=== PATIENT | female | born 1960 | race Two or more races ===

== ENCOUNTER → 2021-11-18 | Outpatient (BNVA) | payer MEDICARE, MEDICAID, SELFPAY | END | disposition home or self-care (01) | PROVIDERS: PCP Nurse Practitioner Primary Care; Visit Provider Urology ==

== ENCOUNTER 2024-09-15 14:33 | Emergency (ER) | payer MEDICARE, MEDICAID, SELFPAY ==
--- NOTE | 2024-09-15 14:44 | XR_ITS ---
Examination: PA lateral chest 2 views Technique: Upright PA lateral chest 2 views Exam date and time: September 07, 2024 1508 hrs. Indications: Left-sided chest pain beginning 3 days ago. Findings: Normal heart size No pneumonia or pulmonary edema The osseous structures are intact Impression: No pneumonia or pulmonary edema
--- NOTE | 2024-09-15 14:44 | EKG_ITS ---
[facility] Test Date: 2024-09-15 Pat Name: SREEKANTH BRUNER Department: Room: - Gender: Female [place] Driver: : 1960 Requested By: Rocky Richards (DIE MECHANIC) Order Number: [id number] Reading MD: Rocky Richards (DIE MECHANIC) Measurements Intervals [place] Rate: 107 P: 26 NV: 157 QRS: -38 QRSD: 113 T: 92 QT: 310 QTc: 414 Interpretive Statements SINUS TACHYCARDIA MARKED LEFT AXIS DEVIATION [QRS AXIS < -30] LOW QRS VOLTAGE IN PRECORDIAL LEADS [QRS DEFLECTION < 1.0 mV IN CHEST LEADS] LEFT VENTRICULAR HYPERTROPHY AND ST-T CHANGE [VOLTAGE CRITERIA PLUS ST/T ABNORMALITY] POSSIBLE ANTERIOR MYOCARDIAL INFARCTION , OF INDETERMINATE AGE [30 ms Q WAVE IN V3/V4, OR R < 0.2 mV IN V4] Compared to ECG 12/07/2018 10:37:28 Left-axis deviation now present Low QRS voltage now present Left ventricular hypertrophy now present ST (T wave) deviation now present Sinus rhythm no longer present T-wave abnormality no longer present Possible ischemia no longer present Myocardial infarct finding still present /store/S0/[id number]
[2024-09-15 14:51] VITALS: BP 139/70; PULSE 98; RESP 17; TEMP 36.6; O2SAT 98
--- NOTE | 2024-09-15 14:58 | EDNOTE_ITS ---
ED Chest Pain RME/HPI General Chief Complaint: Chest Pain Stated Complaint: LEFT SIDE CHEST PAIN FOR 3 DAYS Time Seen by Provider: 09/15/24 14:58 Arrival date/time: 09/15/24 14:33 RME / HPI RME / HPI narrative: 64-year-old female patient with significant history of hypertension diabetes mellitus, came in for evaluation regarding left-sided chest pain. Onset of symptoms for the last 3 days as on and off left-sided chest pain, described as pulsating, radiating to the back. Patient denies any cough denies any diaphoresis denies any shortness of breath. Patient also denies any nausea or vomiting. Denies any abdominal pain. No medication was taken prior to arrival. Currently patient is less intense as earlier today. Related Data Home Medications ?Medication ?Instructions ?Recorded ?Confirmed Aspirin (Aspir 81) 1 tab PO DAILY ##0 04/09/12 12/16/21 Insulin NPH/Regular 70-30 * ##0 04/09/12 12/16/21 (NOVOLIN 70-30 *) furosemide 40 mg tablet 40 mg PO QDAY 10/03/21 12/16/21 gabapentin 600 mg tablet 600 mg PO QDAY 10/03/21 12/16/21 hydrocodone 5 mg-acetaminophen 325 1 tab PO BID PRN 10/03/21 12/16/21 mg tablet isosorbide dinitrate 30 mg tablet 30 mg PO QID 10/03/21 12/16/21 losartan 100 mg tablet 100 mg PO QDAY 10/03/21 12/16/21 metformin 1,000 mg tablet 1,000 mg PO QDAY 10/03/21 12/16/21 mirabegron 50 mg tablet,extended 50 mg PO QDAY 10/03/21 12/16/21 release 24 hr (Myrbetriq) nortriptyline 10 mg capsule 10 mg PO QDAY 10/03/21 12/16/21 potassium chloride 8 mEq 8 meq PO QDAY 10/03/21 12/16/21 capsule,extended release pravastatin 40 mg tablet 40 mg PO QDAY 10/03/21 12/16/21 ropinirole 0.5 mg tablet 0.5 mg PO QDAY 10/03/21 12/16/21 trihexyphenidyl 2 mg tablet 2 mg PO QPC 10/03/21 12/16/21 Previous Rx's ?Medication ?Instructions ?Recorded diclofenac sodium 1 % topical gel 1 g topical .BID prn #100 grams 12/12/22 cyclobenzaprine 10 mg tablet 10 mg PO TID PRN muscle spasm #20 09/15/24 tabs naproxen 500 mg tablet (Naprosyn) 500 mg PO BID PRN pain #30 tabs 09/15/24 Allergies Allergy/AdvReac Type Severity Reaction Status Date / Time Penicillins Allergy Mild Rash Verified 09/15/24 14:36 Review of Systems Review of Systems Narrative Review of Systems: Review of system reviewed and within normal limits except mentioned in HPI ED Exam Narrative Physical exam: VITAL SIGNS: Reviewed. GENERAL APPEARANCE: Alert and interactive, follows commands, no acute distress, HEAD AND FACE: Non-traumatic. ENT: PERRL, pink conjunctivitis, eyelid no trauma, Mucous membrane moist. NECK: Supple, nontender, no nuchal rigidity. CHEST: Left chest tenderness, no crepitus, no paradoxical movement, no retractions. LUNGS: Clear, well ventilated, symmetric, no rales, no wheezing, no ronchi, no stridor, good breath sounds bilaterally. HEART: Regular rate, regular rhythm, no murmur, no gallops. ABDOMEN: Soft, positive bowel sounds, nondistended, no guarding, nontender, no rebound, no masses, RECTAL: Deferred. GENITAL: Deferred. NEUROLOGICAL: Gross motor function intact sensory function intact, Appropriate for age. MUSCULOSKELETAL: low back nontender, full range of motion. EXTREMITIES: Nontender, full range of motion. SKIN: Color pink, dry, no rash, no lacerations, no abrasions, no contusions. LYMPHATICS: Deferred. Course Quality Measures none Orders Category Date Time Status EKG (ED ONLY) *Do not use* NOW Care 09/15/24 14:44 Completed EKG (ED Only) Stat Exams 09/15/24 14:44 Draft XR chest 2V Stat Exams 09/15/24 14:44 Completed CBC Stat Lab 09/15/24 14:56 Completed Comprehensive Metabolic Panel Stat Lab 09/15/24 14:56 Completed Lipase Stat Lab 09/15/24 14:56 Completed Troponin I Stat Lab 09/15/24 14:56 Completed Vital Signs Vital signs: Vital Signs Temperature 97.8 F 09/15/24 14:51 Pulse Rate 98 09/15/24 14:51 Respiratory Rate 17 09/15/24 14:51 Blood Pressure 139/70 H 09/15/24 14:51 Pulse Oximetry (%) 98 09/15/24 14:51 Oxygen Delivery Method Room Air 09/15/24 14:51 Chest Pain MDM Narrative MDM Narrative:: 64-year-old female patient with significant history of hypertension diabetes mellitus, came in for evaluation regarding left-sided chest pain. Onset of sy mptoms for the last 3 days as on and off left-sided chest pain, described as pulsating, radiating to the back. Patient denies any cough denies any diaphoresis denies any shortness of breath. Patient also denies any nausea or vomiting. Denies any abdominal pain. No medication was taken prior to arrival. Currently patient is less intense as earlier today. Patient cardiac workup all came back unremarkable troponin is normal. Repeat troponin is not needed patient's been having on and off chest pain for 3 days now. The rest of the labs unremarkable. Patient will be sent home on naproxen and muscle relaxant. Patient was advised to closely follow-up with PCP and return to emergency room for worsening of chest pain. Patient agrees with the plan. Patient is not having any pain prior to discharge. Patient data External records reviewed:: None Clinical information provided by:: none Social determinants that could affect healthcare access:: none Patient has the following chronic illnesses:: Hypertension, DM How is presenting disease/condition affected by chronic disease/condition?: exacerbated by Evaluation data The following diagnostics were reviewed and interpreted by me:: lab results, radiology exam(s) and EKG tracing(s) Lab and/or radiology exams considered but not ordered:: None Interpretation Summary: Patient's workup all came back unremarkable except for slight leukocytosis 20,000. EKG showed sinus tachycardia, ventricular rate of 107 bpm, no ST segme nt ovation depression noted. I personally reviewed and interpreted the x-ray of this patient. There is no acute abnormalities found, no infiltrates no pneumothorax no hemothorax normal chest x-ray. Review of other structures was without significant abnormal findings also. I additionally reviewed the radiologist report and agree with the interpretation. Medications / Prescriptions Medications or Prescriptions considered but not ordered:: None Medication administrations:: None Consultations Consultation(s) initiated? (list below): No Diagnosis Chest Pain Differential Diagnosis: pneumothorax, chest pain and other (Pneumonia, ACS) Most likely diagnosis given after review of the tests above:: Chest pain Admission Indicated Admission indicated?: not indicated Admission Request Was there a request for admission?: No Disposition Plan Disposition Plan: Discharge Discharge Attestation Discharge Attestation: The patient was given an opportunity to ask questions and understood the discharge instructions. Discharge instructions specifically effects, indications for sooner follow up or return to the emergency department, and the expected course of current diagnosis. Patient condition: Stable Discharge Plan Plan Patient Disposition: HOME (Self Care) Disposition Comment: stable Prescriptions/Referrals Prescriptions/Med Rec: New cyclobenzaprine 10 mg tablet 10 mg PO TID PRN (Reason: muscle spasm) Qty: 20 0RF naproxen [Naprosyn] 500 mg tablet 500 mg PO BID PRN (Reason: pain) Qty: 30 0RF No Action pravastatin 40 mg tablet 40 mg PO QDAY furosemide 40 mg tablet 40 mg PO QDAY potassium chloride 8 mEq capsule, extended release 8 meq PO QDAY isosorbide dinitrate 30 mg tablet 30 mg PO QID Rx Instructions: allow nitrate-free interval of 12-14 hrs per 24-hr period trihexyphenidyl 2 mg tablet 2 mg PO QPC gabapentin 600 mg tablet 600 mg PO QDAY Rx Instructions: take 2 tabs po Q morning and at noon and 3 tab at bedtime losartan 100 mg tablet 100 mg PO QDAY metformin 1,000 mg tablet 1,000 mg PO QDAY ropinirole 0.5 mg tablet 0.5 mg PO QDAY nortriptyline 10 mg capsule 10 mg PO QDAY hydrocodone-acetaminophen 5-325 mg tablet 1 tab PO BID PRN Myrbetriq 50 mg tablet extended release 24 hr 50 mg PO QDAY Aspirin (Aspir 81) 81 MG TABLET.DR 1 tab PO DAILY Qty: 0 Insulin NPH/Regular 70-30 * (NOVOLIN 70-30 *) 100 UNIT/ML unit Qty: 0 diclofenac sodium 1 % gel 1 g topical .BID prn Qty: 100 0RF Rx Instructions: apply to single elbow, wrist or hand; for hand includes palm/fingers/back of hand Referrals: Evan Lovett [Primary Care Provider] - In 1 week Problem List Clinical Impression: Chest pain, muscular Patient/Caregiver Discharge Instructions Discharge Activity: activity as tolerated Education Materials: Understanding the Pain Response Additional Instructions: Thank you for the opportunity for serving you today. You are stable for discharged . You are advised to: Follow-up with your PCP in 1 to 2 days Return to ED for worsening of symptoms Increase oral fluids Take medication as prescribed Print Language: Palestinian Stand Alone Forms: Tigist Award Info., Patient Portal Info Letter PA/CAGE MANAGER Supervising Physician HARRY/ANGELICA Supervising Physician: MD Phylicia
[2024-09-15 15:11] LABS: Basophils # (Auto) 0.1 Thou/mm3 (0.0-0.2); Basophils % (Auto) 0 % (0-2.5); Eosinophils # (Auto) 0.2 Thou/mm3 (0.0-0.5); Eosinophils % (Auto) 1 % (0-10); Hematocrit 37.1 % (36.0-46.0); Hemoglobin 11.6 g/dL (12.0-16.0); Immature Granulocytes % (Auto) 0 % (0-0); Immature Granulocytes Auto 0.04 Thou/mm3 (0.00-0.00); Lymphocytes # (Auto) 4.2 Thou/mm3 (1.0-4.8); Lymphocytes % (Auto) 26 % (10-50); Mean Corpuscular HGB Conc 31.3 g/dl (31.0-37.0); Mean Corpuscular Hemoglobin 23.6 pg (25.0-35.0); Mean Corpuscular Volume 75 fL (80-100); Monocytes # (Auto) 0.9 Thou/mm3 (0.0-0.8); Monocytes % (Auto) 5 % (0-12); Neutrophils # (Auto) 10.6 Thou/mm3 (1.8-7.7); Neutrophils % (Auto) 67 % (37-80); Nucleated Red Blood Cell % 0 /100 WBC (0); Platelet Count 403 Thou/mm3 (140-440); RDW Standard Deviation 43.7 fL (36.4-46.3); Red Blood Count 4.92 Miln/mm3 (4.00-5.20); White Blood Count 15.9 Thou/mm3 (3.6-11.0)
[2024-09-15 15:48] LABS: Alanine Aminotransferase < 7 U/L (10-49); Albumin, Serum 4.5 gm/dL (3.4-4.8); Albumin/Globulin Ratio 1.3 (1.2-2.2); Alkaline Phosphatase 110 U/L (46-116); Anion Gap 7 (7-16); Aspartate Amino Transferase 10 U/L (0-34); BUN/Creatinine Ratio 17 Ratio (12-20); Bilirubin,Total 0.2 mg/dL (0.3-1.2); Blood Urea Nitrogen 17 mg/dL (9-23); Calcium 9.7 mg/dL (8.3-10.6); Calcium (Corrected) 9.7 mg/dL (8.5-10.1); Chloride 104 mMol/L (98-107); Globulin 3.4 gm/dL (2.3-3.5); Glucose 205 mg/dL (74-106); Lipase 41 U/L (12-53); Osmolality,Calculated 281 (275-295); Potassium 4.1 mMol/L (3.4-5.1); Sodium 137 mMol/L (136-145); Total Protein 7.9 gm/dL (5.7-8.2); eGFR > 60 See Note
[2024-09-15 16:01] LABS: Troponin I < 0.002 ng/mL (0.0-0.045)
== END 2024-09-15 16:54 | disposition home or self-care (01) ==
PROVIDERS: Nurse Practitioner Primary Care; Emergency Provider Emergency Medicine; PCP Family Medicine
DX: R07.9 Chest pain, unspecified (principal); R00.0 Tachycardia, unspecified; I10 Essential (primary) hypertension; D72.829 Elevated white blood cell count, unspecified
CPT/HCPCS: 36415; 71046; 80053; 83690; 84484; 85025; 93005; 99283

== ENCOUNTER 2024-09-30 11:53 | Emergency (ER) | payer MEDICARE, MEDICAID, SELFPAY ==
[2024-09-30 12:05] VITALS: BP 147/73; PULSE 100; RESP 19; TEMP 36.6; O2SAT 96; BMI 40.9
--- NOTE | 2024-09-30 12:12 | XR_ITS ---
Examination: CT brain head without contrast. 2-D sagittal coronal reconstructions Date and time of exam:September 30, 2024 1244 hours Comparison April 22, 2014 INDICATIONS: Onset generalized head pain beginning 3 days ago CTDI: vol (mGy):47.1 DLP: (mGycm):923 Technique: Multiple CT axial sections of the brain have been obtained, 5 mm slice thickness. Contrast has not been administered. 2-D sagittal, coronal reconstructions have been obtained Low dose protocols were performed. One or more of the following dose reduction techniques were used; automated exposure control, adjustment of the mA and/or KV according to patient size, use of iterative reconstruction technique. Findings: No significant ventricular enlargement. Intra-axial or extra-axial hemorrhage density is not seen. No mass effect or midline shift Basal cisterns are not remarkable. Fourth ventricle is midline. Cranial vault intact. Impression: Negative for acute hemorrhage, mass effect or midline shift Advise clinical correlation follow-up accordingly
--- NOTE | 2024-09-30 12:12 | PD.EDRME ---
Rapid Medical Screening Exam RME Arrival date/time: 09/30/24 11:53 Chief Complaint: Headache Time Seen by Provider: 09/30/24 11:55 Vital signs: Vital Signs Temperature 97.8 F 09/30/24 12:05 Pulse Rate 100 09/30/24 12:05 Respiratory Rate 19 09/30/24 12:05 Blood Pressure 147/73 H 09/30/24 12:05 Pulse Oximetry (%) 96 09/30/24 12:05 Oxygen Delivery Method Room Air 09/30/24 12:05 E Narrative: Right-sided headache/neck pain x 3 days, no reported injury.
[2024-09-30 12:39] LABS: Basophils # (Auto) 0.1 Thou/mm3 (0.0-0.2); Basophils % (Auto) 1 % (0-2.5); Eosinophils # (Auto) 0.3 Thou/mm3 (0.0-0.5); Eosinophils % (Auto) 2 % (0-10); Hematocrit 38.2 % (36.0-46.0); Hemoglobin 12.4 g/dL (12.0-16.0); Immature Granulocytes % (Auto) 1 % (0-0); Immature Granulocytes Auto 0.07 Thou/mm3 (0.00-0.00); Lymphocytes # (Auto) 4.6 Thou/mm3 (1.0-4.8); Lymphocytes % (Auto) 30 % (10-50); Mean Corpuscular HGB Conc 32.5 g/dl (31.0-37.0); Mean Corpuscular Hemoglobin 24.4 pg (25.0-35.0); Mean Corpuscular Volume 75 fL (80-100); Monocytes # (Auto) 0.7 Thou/mm3 (0.0-0.8); Monocytes % (Auto) 5 % (0-12); Neutrophils # (Auto) 9.4 Thou/mm3 (1.8-7.7); Neutrophils % (Auto) 62 % (37-80); Nucleated Red Blood Cell % 0 /100 WBC (0); Platelet Count 377 Thou/mm3 (140-440); RDW Standard Deviation 43.8 fL (36.4-46.3); Red Blood Count 5.09 Miln/mm3 (4.00-5.20); White Blood Count 15.1 Thou/mm3 (3.6-11.0)
[2024-09-30 13:15] LABS: Alanine Aminotransferase < 7 U/L (10-49); Albumin, Serum 4.5 gm/dL (3.4-4.8); Albumin/Globulin Ratio 1.3 (1.2-2.2); Alkaline Phosphatase 151 U/L (46-116); Anion Gap 6 (7-16); Aspartate Amino Transferase 10 U/L (0-34); BUN/Creatinine Ratio 23 Ratio (12-20); Bilirubin,Total < 0.2 mg/dL (0.3-1.2); Blood Urea Nitrogen 16 mg/dL (9-23); Calcium 9.6 mg/dL (8.3-10.6); Calcium (Corrected) 9.6 mg/dL (8.5-10.1); Carbon Dioxide 27.1 mMol/L (20.0-31.0); Chloride 105 mMol/L (98-107); Creatinine (Component) 0.7 mg/dL (0.6-1.3); Estimated Creatinine Clearance 91.5 mL/min (>60); Globulin 3.5 gm/dL (2.3-3.5); Glucose 212 mg/dL (74-106); Osmolality,Calculated 282 (275-295); Potassium 4.1 mMol/L (3.4-5.1); Sodium 138 mMol/L (136-145); eGFR > 60 See Note
--- NOTE | 2024-09-30 14:29 | PD.EDHA ---
ED Headache RME/HPI General Chief Complaint: Headache Stated Complaint: headache/neck pain x3 days Time Seen by Provider: 09/30/24 11:55 Arrival date/time: 09/30/24 11:53 RME / HPI RME / HPI Narrative: 64-year-old female patient came in for evaluation regarding posterior neck pain. Onset of symptoms for the last 3 days as sudden onset of posterolateral neck pain, more on the right side, described as dull ache, severity moderate. Patient denies any fall. Denies any fever. Denies any upper or lower extremity weakness. Denies any pain radiating to the arm or legs. Patient is ambulatory. Related Data Home Medications ?Medication ?Instructions ?Recorded ?Confirmed Aspirin (Aspir 81) 1 tab PO DAILY ##0 04/09/12 12/16/21 Insulin NPH/Regular 70-30 * ##0 04/09/12 12/16/21 (NOVOLIN 70-30 *) furosemide 40 mg tablet 40 mg PO QDAY 10/03/21 12/16/21 gabapentin 600 mg tablet 600 mg PO QDAY 10/03/21 12/16/21 hydrocodone 5 mg-acetaminophen 325 1 tab PO BID PRN 10/03/21 12/16/21 mg tablet isosorbide dinitrate 30 mg tablet 30 mg PO QID 10/03/21 12/16/21 losartan 100 mg tablet 100 mg PO QDAY 10/03/21 12/16/21 metformin 1,000 mg tablet 1,000 mg PO QDAY 10/03/21 12/16/21 mirabegron 50 mg tablet,extended 50 mg PO QDAY 10/03/21 12/16/21 release 24 hr (Myrbetriq) nortriptyline 10 mg capsule 10 mg PO QDAY 10/03/21 12/16/21 potassium chloride 8 mEq 8 meq PO QDAY 10/03/21 12/16/21 capsule,extended release pravastatin 40 mg tablet 40 mg PO QDAY 10/03/21 12/16/21 ropinirole 0.5 mg tablet 0.5 mg PO QDAY 10/03/21 12/16/21 trihexyphenidyl 2 mg tablet 2 mg PO QPC 10/03/21 12/16/21 Previous Rx's ?Medication ?Instructions ?Recorded diclofenac sodium 1 % topical gel 1 g topical .BID prn #100 grams 12/12/22 cyclobenzaprine 10 mg tablet 10 mg PO TID PRN muscle spasm #20 09/15/24 tabs naproxen 500 mg tablet (Naprosyn) 500 mg PO BID PRN pain #30 tabs 09/15/24 cyclobenzaprine 10 mg tablet 10 mg PO TID PRN muscle spasm #30 09/30/24 tabs ibuprofen 600 mg tablet 600 mg PO TID PRN pain #30 tabs 09/30/24 Allergies Allergy/AdvReac Type Severity Reaction Status Date / Time Penicillins Allergy Mild Rash Verified 09/30/24 11:54 Review of Systems Review of Systems Narrative Review of Systems: Review of system reviewed and within normal limits except mentioned in HPI ED Exam Narrative Physical exam: VITAL SIGNS: Reviewed. GENERAL APPEARANCE: Alert and interactive, follows commands, no acute distress, HEAD AND FACE: Non-traumatic. ENT: PERRL, pink conjunctivitis, eyelid no trauma, Mucous membrane moist. NECK: Supple, posterior neck tenderness more on the right posterolateral, no nuchal rigidity. CHEST: No tenderness, no crepitus, no paradoxical movement, no retractions. LUNGS: Clear, well ventilated, symmetric, no rales, no wheezing, no ronchi, no stridor, good breath sounds bilaterally. HEART: Regular rate, regular rhythm, no murmur, no gallops. ABDOMEN: Soft, positive bowel sounds, nondistended, no guarding, nontender, no rebound, no masses, RECTAL: Deferred. GENITAL: Deferred. NEUROLOGICAL: Gross motor function intact sensory function intact, Appropriate for age. MUSCULOSKELETAL: low back nontender, full range of motion. EXTREMITIES: Nontender, full range of motion. SKIN: Color pink, dry, no rash, no lacerations, no abrasions, no contusions. LYMPHATICS: Deferred. Course Quality Measures none Orders Category Date Time Status CT head/brain wo con Stat Exams 09/30/24 12:12 Completed CBC Stat Lab 09/30/24 12:20 Completed CMP [Comprehensive Metabolic Panel] Stat Lab 09/30/24 12:20 Completed Acetaminophen Tab [Tylenol ES Tab] Med 09/30/24 12:50 Discontinued 1,000 mg PO X1 ONE CYCLObenzaPRINE [Flexeril] Med 09/30/24 12:50 Discontinued 10 mg PO X1 ONE Vital Signs Vital signs: Vital Signs Temperature 97.8 F 09/30/24 12:05 Pulse Rate 100 09/30/24 12:05 Respiratory Rate 19 09/30/24 12:05 Blood Pressure 147/73 H 09/30/24 12:05 Pulse Oximetry (%) 96 09/30/24 12:05 Oxygen Delivery Method Room Air 09/30/24 12:05 Headache MDM Narrative MDM Narrative:: 64-year-old female patient came in for evaluation regarding posterior neck pain. Onset of symptoms for the last 3 days as sudden onset of posterolateral neck pain, more on the right side, described as dull ache, severity moderate. Patient denies any fall. Denies any fever. Denies any upper or lower extremity weakness. Denies any pain radiating to the arm or legs. Patient is ambulatory. CT scan of the head came back unremarkable. Laboratory workup also all came back normal except for slight leukocytosis. Patient received Tylenol and Flexeril with good relief of pain Patient data External records reviewed:: None Clinical information provided by:: patient Social determinants that could affect healthcare access:: none Patient has the following chronic illnesses:: Diabetes mellitus hypertension How is presenting disease/condition affected by chronic disease/condition?: exacerbated by Evaluation data The following diagnostics were reviewed and interpreted by me:: lab results and radiology exam(s) Lab and/or radiology exams considered but not ordered:: None Interpretation Summary: CT scan of the head came back unremarkable. Laboratory workup came back normal except for slight leukocytosis. Medications / Prescriptions Medications or Prescriptions considered but not ordered:: None Medication administrations:: Medication Administration History Discontinued Medications Acetaminophen (Acetaminophen 500 Mg Tablet) 1,000 mg PO X1 ONE Stop: 09/30/24 12:51 Cyclobenzaprine HCl (Cyclobenzaprine 5 Mg Tablet) 10 mg PO X1 ONE Stop: 09/30/24 12:51 Tylenol and Flexeril Consultations Consultation(s) initiated? (list below): No Diagnosis Differential diagnosis headache: migraine, headache and other (Neck pain) Most likely diagnosis given after review of the tests above:: Neck pain Admission Indicated Admission indicated?: not indicated Admission Request Was there a request for admission?: No Disposition Plan Disposition Plan: Discharge Discharge Attestation Discharge Attestation: The patient was given an opportunity to ask questions and understood the discharge instructions. Discharge instructions specifically effects, indications for sooner follow up or return to the emergency department, and the expected course of current diagnosis. Patient condition: Stable Discharge Plan Plan Patient Disposition: HOME (Self Care) Disposition Comment: stable Prescriptions/Referrals Prescriptions/Med Rec: New cyclobenzaprine 10 mg tablet 10 mg PO TID PRN (Reason: muscle spasm) Qty: 30 0RF ibuprofen 600 mg tablet 600 mg PO TID PRN (Reason: pain) Qty: 30 0RF No Action pravastatin 40 mg tablet 40 mg PO QDAY furosemide 40 mg tablet 40 mg PO QDAY potassium chloride 8 mEq capsule, extended release 8 meq PO QDAY isosorbide dinitrate 30 mg tablet 30 mg PO QID Rx Instructions: allow nitrate-free interval of 12-14 hrs per 24-hr period trihexyphenidyl 2 mg tablet 2 mg PO QPC gabapentin 600 mg tablet 600 mg PO QDAY Rx Instructions: take 2 tabs po Q morning and at noon and 3 tab at bedtime losartan 100 mg tablet 100 mg PO QDAY metformin 1,000 mg tablet 1,000 mg PO QDAY ropinirole 0.5 mg tablet 0.5 mg PO QDAY nortriptyline 10 mg capsule 10 mg PO QDAY hydrocodone-acetaminophen 5-325 mg tablet 1 tab PO BID PRN Myrbetriq 50 mg tablet extended release 24 hr 50 mg PO QDAY Aspirin (Aspir 81) 81 MG TABLET.DR 1 tab PO DAILY Qty: 0 Insulin NPH/Regular 70-30 * (NOVOLIN 70-30 *) 100 UNIT/ML unit Qty: 0 diclofenac sodium 1 % gel 1 g topical .BID prn Qty: 100 0RF Rx Instructions: apply to single elbow, wrist or hand; for hand includes palm/fingers/back of hand cyclobenzaprine 10 mg tablet 10 mg PO TID PRN (Reason: muscle spasm) Qty: 20 0RF naproxen [Naprosyn] 500 mg tablet 500 mg PO BID PRN (Reason: pain) Qty: 30 0RF Referrals: Evan Lovett [Primary Care Provider] - In 1 week Problem List Clinical Impression: Posterior neck pain Patient/Caregiver Discharge Instructions Discharge Activity: activity as tolerated Education Materials: Neck Exercises: Active Neck Rotation Additional Instructions: Thank you for the opportunity for serving you today. You are stable for discharged . You are advised to: Follow-up with your PCP in 1 to 2 days Return to ED for worsening of symptoms Increase oral fluids Take medication as prescribed Print Language: Northern Irish Stand Alone Forms: Tigist Award Info., Patient Portal Info Letter PA/CHARTER BUS DRIVER Supervising Physician PA/CHARTER BUS DRIVER Supervising Physician: MD Bren
[2024-09-30] MEDS: CYCLObenzaPRINE 5 MG TABLET 10 MG PO (14:56)
[2024-09-30] MEDS: ACETAMINOPHEN 500 MG TABLET 1000 MG PO (14:56)
== END 2024-09-30 15:02 | disposition home or self-care (01) ==
PROVIDERS: Physician Assistant; Emergency Provider Emergency Medicine; PCP Family Medicine
DX: R51.9 Headache, unspecified (principal); M54.2 Cervicalgia
CPT/HCPCS: 36415; 70450; 80053; 85025; 99284; A9270

== ENCOUNTER → 2025-01-23 | Outpatient (CLI) | payer MEDICARE, MEDICAID, SELFPAY ==
--- NOTE | 2025-01-23 | XR_ITS ---
Examination: Shoulder,left, 3 views Technique: Shoulder AP internal rotation, AP external rotation, Y view shoulder, 3 views Exam date and time :January 23, 2025: 35 hours INDICATIONS: Left shoulder pain beginning 8 months ago. FINDINGS: Moderate to advanced narrowing glenohumeral joint Moderate calcific tendinitis No fracture IMPRESSION: Moderate to advanced narrowing glenohumeral joint Moderate calcific tendinitis
== END | disposition home or self-care (01) ==
PROVIDERS: PCP Family Medicine; Referring Provider Family Medicine; Visit Provider Family Medicine
DX: M75.32 Calcific tendinitis of left shoulder (principal); M25.812 Other specified joint disorders, left shoulder
CPT/HCPCS: 73030

== ENCOUNTER → 2025-02-28 | Outpatient (CLI) | payer MEDICARE, MEDICAID, SELFPAY ==
--- NOTE | 2025-02-28 | XR_ITS ---
EXAMINATION: Ankle, right 3 views . Technique: Ankle AP, oblique, lateral 3 views Date and time of exam: February 28, 2025 1146 hours INDICATIONS: Patient fell 4 days ago with injury to the ankle, ankle pain. FINDINGS: Severe osteopenia Lateral malleolar soft tissue swelling No acute fracture IMPRESSION: No acute fracture
== END | disposition home or self-care (01) ==
PROVIDERS: PCP Family Medicine; Referring Provider Family Medicine; Visit Provider Family Medicine
DX: S99.911A Unspecified injury of right ankle, initial encounter (principal); W19.XXXA Unspecified fall, initial encounter
CPT/HCPCS: 73610

== ENCOUNTER → 2025-03-01 | Outpatient (CLI) | payer MEDICARE, MEDICAID, SELFPAY ==
[2025-03-01 10:20] LABS: Basophils # (Auto) 0.1 Thou/mm3 (0.0-0.2); Basophils % (Auto) 1 % (0-2.5); Eosinophils # (Auto) 0.2 Thou/mm3 (0.0-0.5); Eosinophils % (Auto) 2 % (0-10); Hematocrit 37.7 % (36.0-46.0); Hemoglobin 12.1 g/dL (12.0-16.0); Immature Granulocytes % (Auto) 0 % (0-0); Immature Granulocytes Auto 0.04 Thou/mm3 (0.00-0.00); Lymphocytes # (Auto) 4.4 Thou/mm3 (1.0-4.8); Lymphocytes % (Auto) 32 % (10-50); Mean Corpuscular HGB Conc 32.1 g/dl (31.0-37.0); Mean Corpuscular Hemoglobin 25.2 pg (25.0-35.0); Mean Corpuscular Volume 78 fL (80-100); Monocytes # (Auto) 0.7 Thou/mm3 (0.0-0.8); Monocytes % (Auto) 5 % (0-12); Neutrophils # (Auto) 8.2 Thou/mm3 (1.8-7.7); Neutrophils % (Auto) 61 % (37-80); Nucleated Red Blood Cell % 0 /100 WBC (0); Platelet Count 413 Thou/mm3 (140-440); RDW Standard Deviation 45.5 fL (36.4-46.3); Red Blood Count 4.81 Miln/mm3 (4.00-5.20); White Blood Count 13.5 Thou/mm3 (3.6-11.0)
[2025-03-01 10:30] LABS: Glucose Estimated Average 226 mg/dL (80-131); Hemoglobin A1C 9.5 % Hgb (4.8-6.0)
[2025-03-01 10:40] LABS: Parathyroid Hormone Intact 44.8 pg/ml (18.5-88.0)
[2025-03-01 10:44] LABS: Alanine Aminotransferase 12 U/L (10-49); Albumin/Globulin Ratio 1.3 (1.2-2.2); Alkaline Phosphatase 123 U/L (46-116); Anion Gap 8 (7-16); Aspartate Amino Transferase 11 U/L (0-34); BUN/Creatinine Ratio 30 Ratio (12-20); Bilirubin,Total 0.2 mg/dL (0.3-1.2); Blood Urea Nitrogen 15 mg/dL (9-23); Calcium 8.6 mg/dL (8.3-10.6); Calcium (Corrected) 8.6 mg/dL (8.5-10.1); Carbon Dioxide 30.1 mMol/L (20.0-31.0); Cardiac Risk Estimate 2.6 RATIO (3.7-5.6); Chloride 105 mMol/L (98-107); Cholesterol 96 mg/dL (132-200); Creatinine (Component) 0.5 mg/dL (0.6-1.3); Globulin 3.1 gm/dL (2.3-3.5); Glucose 86 mg/dL (74-106); HDL Cholesterol 37 mg/dL (40-60); LDL Cholesterol,Calculated 33 mg/dL (0-130); Osmolality,Calculated 284 (275-295); Phosphorous 2.8 mg/dL (2.4-5.1); Potassium 4.3 mMol/L (3.4-5.1); Sodium 143 mMol/L (136-145); Thyroid Stimulating Hormone 4.06 uIU/mL (0.55-4.78); Total Protein 7.1 gm/dL (5.7-8.2); Triglycerides 128 mg/dL (30-150); Uric Acid 3.5 mg/dL (3.1-7.8); eGFR > 60 See Note
[2025-03-01 10:46] LABS: Ferritin 12 ng/mL (7.3-270.7); Iron 39 mcg/dL (50-170); Total Iron Binding Capacity 347 mcg/dL (250-425)
[2025-03-01 14:34] LABS: Creatinine MALB Rnd Ur 22 mg/dL (30-125); Microalbumin Creat Ratio 73 mg/gCrea (<30); Microalbumin, Random Urine 16 mg/L (0-300)
== END | disposition home or self-care (01) ==
PROVIDERS: PCP Family Medicine; Referring Provider Internal Medicine Nephrology; Visit Provider Internal Medicine Nephrology
DX: E11.22 Type 2 diabetes mellitus with diabetic chronic kidney disease (principal); D63.1 Anemia in chronic kidney disease; E03.9 Hypothyroidism, unspecified; E21.3 Hyperparathyroidism, unspecified; E55.9 Vitamin D deficiency, unspecified; E78.5 Hyperlipidemia, unspecified; E83.39 Other disorders of phosphorus metabolism; M10.30 Gout due to renal impairment, unspecified site; N04.9 Nephrotic syndrome with unspecified morphologic changes; N18.9 Chronic kidney disease, unspecified
CPT/HCPCS: 36415; 80053; 80061; 82043; 82306; 82570; 82728; 83036; 83540; 83550; 83970; 84100; 84439; 84443; 84550; 85025

== ENCOUNTER → 2025-03-31 | Outpatient (CLI) | payer MEDICARE, MEDICAID, SELFPAY ==
[2025-03-31 11:31] LABS: Basophils # (Auto) 0.1 Thou/mm3 (0.0-0.2); Basophils % (Auto) 1 % (0-2.5); Eosinophils # (Auto) 0.3 Thou/mm3 (0.0-0.5); Eosinophils % (Auto) 2 % (0-10); Hematocrit 36.5 % (36.0-46.0); Hemoglobin 12.1 g/dL (12.0-16.0); Immature Granulocytes % (Auto) 0 % (0-0); Immature Granulocytes Auto 0.05 Thou/mm3 (0.00-0.00); Lymphocytes % (Auto) 29 % (10-50); Mean Corpuscular HGB Conc 33.2 g/dl (31.0-37.0); Mean Corpuscular Hemoglobin 25.3 pg (25.0-35.0); Mean Corpuscular Volume 76 fL (80-100); Monocytes # (Auto) 0.7 Thou/mm3 (0.0-0.8); Monocytes % (Auto) 5 % (0-12); Neutrophils # (Auto) 8.5 Thou/mm3 (1.8-7.7); Neutrophils % (Auto) 63 % (37-80); Nucleated Red Blood Cell % 0 /100 WBC (0); Platelet Count 404 Thou/mm3 (140-440); RDW Standard Deviation 43.3 fL (36.4-46.3); Red Blood Count 4.79 Miln/mm3 (4.00-5.20); White Blood Count 13.6 Thou/mm3 (3.6-11.0)
[2025-03-31 11:47] LABS: Glucose Estimated Average 217 mg/dL (80-131); Hemoglobin A1C 9.2 % Hgb (4.8-6.0)
[2025-03-31 11:51] LABS: Parathyroid Hormone Intact 54.6 pg/ml (18.5-88.0)
[2025-03-31 11:53] LABS: Alanine Aminotransferase 12 U/L (10-49); Albumin, Serum 4.1 gm/dL (3.4-4.8); Albumin/Globulin Ratio 1.4 (1.2-2.2); Alkaline Phosphatase 109 U/L (46-116); Anion Gap 9 (7-16); Aspartate Amino Transferase 14 U/L (0-34); BUN/Creatinine Ratio 18 Ratio (12-20); Bilirubin,Total 0.3 mg/dL (0.3-1.2); Blood Urea Nitrogen 11 mg/dL (9-23); Calcium 9.1 mg/dL (8.3-10.6); Calcium (Corrected) 9.1 mg/dL (8.5-10.1); Carbon Dioxide 28.6 mMol/L (20.0-31.0); Chloride 102 mMol/L (98-107); Creatinine (Component) 0.6 mg/dL (0.6-1.3); Glucose 123 mg/dL (74-106); Magnesium 1.9 mg/dL (1.6-2.6); Osmolality,Calculated 279 (275-295); Phosphorous 3.2 mg/dL (2.4-5.1); Potassium 4.1 mMol/L (3.4-5.1); Sodium 140 mMol/L (136-145); Total Protein 7.1 gm/dL (5.7-8.2); eGFR > 60 See Note
== END | disposition home or self-care (01) ==
LOC: COPL 10:06
PROVIDERS: PCP Family Medicine; Referring Provider Internal Medicine Nephrology; Visit Provider Internal Medicine Nephrology
DX: I12.9 Hypertensive chronic kidney disease with stage 1 through stage 4 chronic kidney disease, or unspecified chronic kidney disease (principal); E11.22 Type 2 diabetes mellitus with diabetic chronic kidney disease; N18.9 Chronic kidney disease, unspecified; E21.3 Hyperparathyroidism, unspecified
CPT/HCPCS: 36415; 80053; 82043; 82570; 83036; 83735; 83970; 84100; 85025

== ENCOUNTER → 2025-04-04 | Outpatient (CLI) | payer MEDICARE, MEDICAID, SELFPAY ==
[2025-04-04 15:01] LABS: Creatinine MALB Rnd Ur 30 mg/dL (30-125); Microalbumin Creat Ratio 140 mg/gCrea (<30); Microalbumin, Random Urine 42 mg/L (0-300)
== END | disposition home or self-care (01) ==
LOC: SLDO 13:27
PROVIDERS: Referring Provider Internal Medicine Nephrology; Visit Provider Internal Medicine Nephrology
DX: I12.9 Hypertensive chronic kidney disease with stage 1 through stage 4 chronic kidney disease, or unspecified chronic kidney disease (principal); N18.9 Chronic kidney disease, unspecified; D63.1 Anemia in chronic kidney disease; E21.3 Hyperparathyroidism, unspecified
CPT/HCPCS: 82043; 82570

== ENCOUNTER → 2025-05-09 | Outpatient (CLI) | payer MEDICARE, MEDICAID, SELFPAY ==
[2025-05-09 10:09] LABS: Basophils # (Auto) 0.1 Thou/mm3 (0.0-0.2); Basophils % (Auto) 1 % (0-2.5); Eosinophils # (Auto) 0.2 Thou/mm3 (0.0-0.5); Eosinophils % (Auto) 1 % (0-10); Hematocrit 38.5 % (36.0-46.0); Hemoglobin 12.5 g/dL (12.0-16.0); Immature Granulocytes Auto 0.06 Thou/mm3 (0.00-0.00); Lymphocytes # (Auto) 4.5 Thou/mm3 (1.0-4.8); Lymphocytes % (Auto) 28 % (10-50); Mean Corpuscular HGB Conc 32.5 g/dl (31.0-37.0); Mean Corpuscular Hemoglobin 24.8 pg (25.0-35.0); Mean Corpuscular Volume 76 fL (80-100); Monocytes # (Auto) 0.8 Thou/mm3 (0.0-0.8); Monocytes % (Auto) 5 % (0-12); Neutrophils # (Auto) 10.8 Thou/mm3 (1.8-7.7); Neutrophils % (Auto) 65 % (37-80); Nucleated Red Blood Cell # 0.00 Thou/mm3 (0.00-0.00); Nucleated Red Blood Cell % 0 /100 WBC (0); Platelet Count 415 Thou/mm3 (140-440); RDW Standard Deviation 41.8 fL (36.4-46.3); Red Blood Count 5.05 Miln/mm3 (4.00-5.20); White Blood Count 16.5 Thou/mm3 (3.6-11.0)
[2025-05-09 10:20] LABS: Glucose Estimated Average 266 mg/dL (80-131); Hemoglobin A1C 10.9 % Hgb (4.8-6.0)
[2025-05-09 10:22] LABS: Creatinine MALB Rnd Ur 61 mg/dL (30-125); Microalbumin Creat Ratio 56 mg/gCrea (<30); Microalbumin, Random Urine 34 mg/L (0-300)
[2025-05-09 10:32] LABS: Alanine Aminotransferase 11 U/L (10-49); Albumin, Serum 4.1 gm/dL (3.4-4.8); Albumin/Globulin Ratio 1.2 (1.2-2.2); Alkaline Phosphatase 120 U/L (46-116); Anion Gap 11 (7-16); Aspartate Amino Transferase 15 U/L (0-34); BUN/Creatinine Ratio 18 Ratio (12-20); Bilirubin,Total 0.3 mg/dL (0.3-1.2); Blood Urea Nitrogen 11 mg/dL (9-23); Calcium 9.0 mg/dL (8.3-10.6); Calcium (Corrected) 9.0 mg/dL (8.5-10.1); Carbon Dioxide 26.7 mMol/L (20.0-31.0); Cardiac Risk Estimate 3.1 RATIO (3.7-5.6); Chloride 103 mMol/L (98-107); Cholesterol 110 mg/dL (132-200); Creatinine (Component) 0.6 mg/dL (0.6-1.3); Globulin 3.4 gm/dL (2.3-3.5); Glucose 169 mg/dL (74-106); HDL Cholesterol 35 mg/dL (40-60); LDL Cholesterol,Calculated 41 mg/dL (0-130); Osmolality,Calculated 284 (275-295); Potassium 3.9 mMol/L (3.4-5.1); Sodium 141 mMol/L (136-145); Total Protein 7.5 gm/dL (5.7-8.2); Triglycerides 172 mg/dL (30-150); eGFR > 60 See Note
== END | disposition home or self-care (01) ==
LOC: COPL 08:59
PROVIDERS: PCP Family Medicine; Referring Provider Internal Medicine Nephrology; Visit Provider Internal Medicine Nephrology
DX: I12.9 Hypertensive chronic kidney disease with stage 1 through stage 4 chronic kidney disease, or unspecified chronic kidney disease (principal); E11.22 Type 2 diabetes mellitus with diabetic chronic kidney disease; N18.9 Chronic kidney disease, unspecified; D63.1 Anemia in chronic kidney disease; E78.5 Hyperlipidemia, unspecified
CPT/HCPCS: 36415; 80053; 80061; 82043; 82570; 83036; 85025

== ENCOUNTER 2025-05-14 15:37 | Emergency (ER) | payer MEDICARE, MEDICAID, SELFPAY ==
[2025-05-14 15:38] VITALS: BMI 39.8
[2025-05-14 16:20] VITALS: BP 170/80; PULSE 104; RESP 19; TEMP 36.6; O2SAT 96
--- NOTE | 2025-05-14 16:23 | XR_ITS ---
Indication: Lumbar spine 3 views TECHNIQUE: AP lateral coned lateral lower lumbar spine 3 views Date and time: May 14, 2025 1523 hours indications: Low back pain for days. FINDINGS: Adequate alignment lumbar vertebral bodies on the lateral view No lumbar fracture [id number] lumbar disc narrowing L1-L2, L2-L3, L5-S1 No spondylolisthesis Prominent lumbar spondylosis IMPRESSION: [id number] lumbar degenerative disc disease L1-L2, L2-L3, L5-S1 Prominent lumbar spondylosis
--- NOTE | 2025-05-14 16:23 | EKG_ITS ---
[facility] Test Date: 2025-05-14 Pat Name: SREEKANTH BRUNER Department: Room: - Gender: Female Senior It Assistant: : 1960 Requested By: Yusra Mark Order Number: [id number] Reading MD: Yusra Mark Measurements Intervals [place] Rate: 95 P: 15 [place]: 142 QRS: -46 QRSD: 111 T: 70 QT: 354 QTc: 447 Interpretive Statements SINUS RHYTHM LEFT ANTERIOR FASCICULAR BLOCK [QRS AXIS <= -45, QR IN I, RS IN II] LEFT VENTRICULAR HYPERTROPHY AND ST-T CHANGE [VOLTAGE CRITERIA PLUS ST/T ABNORMALITY] POSSIBLE ANTERIOR MYOCARDIAL INFARCTION , PROBABLY OLD [30 ms Q WAVE IN V3/V4, OR R < 0.2 mV IN V4] Compared to ECG 09/15/2024 15:09:11 Left anterior fascicular block now present Sinus tachycardia no longer present Left-axis deviation no longer present ST (T wave) deviation still present Myocardial infarct finding still present /store/S0/[id number]/[id number]
--- NOTE | 2025-05-14 16:23 | XR_ITS ---
Examination: CT brain head without contrast. 2-D sagittal coronal reconstructions Date and time of exam:May 14, 2025, 1626 hours, comparison September 30, 2024 INDICATIONS: Onset headache high blood pressure dizziness beginning 4 days ago with tremors today CTDI: vol (mGy):21.6 DLP: (mGycm):1045 Technique: Multiple CT axial sections of the brain have been obtained, 5 mm slice thickness. Contrast has not been administered. 2-D sagittal, coronal reconstructions have been obtained Low dose protocols were performed. One or more of the following dose reduction techniques were used; automated exposure control, adjustment of the mA and/or KV according to patient size, use of iterative reconstruction technique. Findings: No significant ventricular enlargement. Intra-axial or extra-axial hemorrhage density is not seen. No mass effect or midline shift Basal cisterns are not remarkable. Fourth ventricle is midline. Cranial vault intact. Impression: Patient motion degrades scan image quality No hemorrhage mass effect or midline shift is noted
--- NOTE | 2025-05-14 16:24 | PD.EDRME ---
Rapid Medical Screening Exam E Arrival date/time: 05/14/25 15:37 This is a case of 64-year-old female with history of Parkinson and diabetes came in in the emergency room due to multiple concern patient initially came with left upper arm and left leg numbness for 3 days shaded with tingling sensation patient also noted to have on and off chest pain but no shortness of breath no palpitation patient also noted to have lower back pain but no injury no trauma persistence of the symptoms this patient decided to start consult here in the emergency room Chief Complaint: General Adult/Misc Complain
[2025-05-14 17:00] LABS: Basophils # (Auto) 0.1 Thou/mm3 (0.0-0.2); Basophils % (Auto) 1 % (0-2.5); Eosinophils # (Auto) 0.2 Thou/mm3 (0.0-0.5); Eosinophils % (Auto) 1 % (0-10); Hematocrit 38.7 % (36.0-46.0); Hemoglobin 12.1 g/dL (12.0-16.0); Immature Granulocytes Auto 0.07 Thou/mm3 (0.00-0.00); Lymphocytes # (Auto) 5.6 Thou/mm3 (1.0-4.8); Lymphocytes % (Auto) 34 % (10-50); Mean Corpuscular HGB Conc 31.3 g/dl (31.0-37.0); Mean Corpuscular Hemoglobin 24.5 pg (25.0-35.0); Mean Corpuscular Volume 78 fL (80-100); Monocytes # (Auto) 0.8 Thou/mm3 (0.0-0.8); Monocytes % (Auto) 5 % (0-12); Neutrophils # (Auto) 9.8 Thou/mm3 (1.8-7.7); Neutrophils % (Auto) 59 % (37-80); Nucleated Red Blood Cell # 0.00 Thou/mm3 (0.00-0.00); Nucleated Red Blood Cell % 0 /100 WBC (0); Platelet Count 435 Thou/mm3 (140-440); RDW Standard Deviation 43.0 fL (36.4-46.3); Red Blood Count 4.94 Miln/mm3 (4.00-5.20); White Blood Count 16.6 Thou/mm3 (3.6-11.0)
[2025-05-14 17:29] LABS: D-Dimer < 250 ng/mL (<600)
--- NOTE | 2025-05-14 17:33 | PC.NURSE ---
PT CALLED BACK TO TAKE TO RM. NO RESPONSE X1 @[id number]
[2025-05-14 17:50] LABS: Alanine Aminotransferase 7 U/L (10-49); Albumin, Serum 4.1 gm/dL (3.4-4.8); Albumin/Globulin Ratio 1.2 (1.2-2.2); Alkaline Phosphatase 137 U/L (46-116); Anion Gap 9 (7-16); Aspartate Amino Transferase 11 U/L (0-34); BUN/Creatinine Ratio 10 Ratio (12-20); Bilirubin,Total 0.2 mg/dL (0.3-1.2); Blood Urea Nitrogen 9 mg/dL (9-23); Calcium 9.3 mg/dL (8.3-10.6); Calcium (Corrected) 9.3 mg/dL (8.5-10.1); Carbon Dioxide 25.4 mMol/L (20.0-31.0); Chloride 104 mMol/L (98-107); Creatinine (Component) 0.9 mg/dL (0.6-1.3); Estimated Creatinine Clearance 70.1 mL/min (>60); Globulin 3.5 gm/dL (2.3-3.5); Glucose 375 mg/dL (74-106); Osmolality,Calculated 289 (275-295); Potassium 3.5 mMol/L (3.4-5.1); Sodium 138 mMol/L (136-145); Total Protein 7.6 gm/dL (5.7-8.2); Troponin I < 0.020 ng/mL (0.0-0.045); eGFR > 60 See Note
[2025-05-14 17:59] VITALS: BP 153/53; PULSE 80; RESP 19; TEMP 36.7; O2SAT 95
[2025-05-14 19:28] VITALS: BP 104/80; PULSE 96; RESP 20; TEMP 36.7; O2SAT 95
--- NOTE | 2025-05-14 19:44 | PD.EDEXREM ---
ED Extremity Problem RME/HPI General Chief complaint: General Adult/Misc Complain Stated complaint: CRAMPING BILAT LEGS X4 DAYS; HX PARKINSON'S Arrival date/time: 05/14/25 15:37 RME / HPI RME / HPI Narrative: 05/14/25 15:37 This is a case of 64-year-old female with history of Parkinson and diabetes came in in the emergency room due to multiple concern patient initially came with left upper arm and left leg numbness for 3 days shaded with tingling sensation patient also noted to have on and off chest pain but no shortness of breath no palpitation patient also noted to have lower back pain but no injury no trauma persistence of the symptoms this patient decided to start consult here in the emergency room DR. ZELAYA MAIN ED EVALUATION: 64 y/o female with Hx of Type II DM and Parkinson's Disease presents to ED c/o BUE and CHYNA cramping x 4 days. Patient states he cramping radiates from her hips down to her feet, and from her shoulders down to her hands. Denies any chest pain. No other concerns or complaints expressed at this time. Related Data Home Medications ?Medication ?Instructions ?Recorded ?Confirmed Aspirin (Aspir 81) 1 tab PO DAILY ##0 04/09/12 12/16/21 Insulin NPH/Regular 70-30 * ##0 04/09/12 12/16/21 (NOVOLIN 70-30 *) furosemide 40 mg tablet 40 mg PO QDAY 10/03/21 12/16/21 gabapentin 600 mg tablet 600 mg PO QDAY 10/03/21 12/16/21 hydrocodone 5 mg-acetaminophen 325 1 tab PO BID PRN 10/03/21 12/16/21 mg tablet isosorbide dinitrate 30 mg tablet 30 mg PO QID 10/03/21 12/16/21 losartan 100 mg tablet 100 mg PO QDAY 10/03/21 12/16/21 metformin 1,000 mg tablet 1,000 mg PO QDAY 10/03/21 12/16/21 mirabegron 50 mg tablet,extended 50 mg PO QDAY 10/03/21 12/16/21 release 24 hr (Myrbetriq) nortriptyline 10 mg capsule 10 mg PO QDAY 10/03/21 12/16/21 potassium chloride 8 mEq 8 meq PO QDAY 10/03/21 12/16/21 capsule,extended release pravastatin 40 mg tablet 40 mg PO QDAY 10/03/21 12/16/21 ropinirole 0.5 mg tablet 0.5 mg PO QDAY 10/03/21 12/16/21 trihexyphenidyl 2 mg tablet 2 mg PO QPC 10/03/21 12/16/21 Previous Rx's ?Medication ?Instructions ?Recorded diclofenac sodium 1 % topical gel 1 g topical .BID prn #100 grams 12/12/22 cyclobenzaprine 10 mg tablet 10 mg PO TID PRN muscle spasm #20 09/15/24 tabs naproxen 500 mg tablet (Naprosyn) 500 mg PO BID PRN pain #30 tabs 09/15/24 cyclobenzaprine 10 mg tablet 10 mg PO TID PRN muscle spasm #30 09/30/24 tabs ibuprofen 600 mg tablet 600 mg PO TID PRN pain #30 tabs 09/30/24 naproxen 500 mg tablet (Naprosyn) 500 mg PO BID PRN pain #30 tabs 05/14/25 Allergies Allergy/AdvReac Type Severity Reaction Status Date / Time Penicillins Allergy Mild Rash Verified 05/14/25 15:41 Review of Systems Review of Systems Systems Reviewed: All systems reviewed, normal except as documented Past Medical History Past Medical History NEUROLOGIC: Positive Parkinson's Disease ENDOCRINE: Positive Diabetes Mellitus Type 2 ED Exam Narrative Physical exam: Generally patient is alert in no obvious distress with parkinsonian tremor heart is regular rate and rhythm lungs station equal bilaterally abdomen soft bowel sounds present's and nontender musculoskeletal exam showed the patient to have right sided paravertebral lumbar muscular tenderness. Extremities show no asymmetrical swelling. Neurologic exam shows parkinsonian tremor Course Quality Measures none Orders Category Date Time Status EKG (ED ONLY) *Do not use* NOW Care 05/14/25 16:[address] head/brain wo con Stat Exams 05/14/25 16:23 Completed EKG (ED Only) Stat Exams 05/14/25 16:23 Draft XR lumbar spine 2-3V Stat Exams 05/14/25 16:23 Completed CBC Stat Lab 05/14/25 16:46 Completed CMP [Comprehensive Metabolic Panel] Stat Lab 05/14/25 16:46 Completed D-Dimer Stat Lab 05/14/25 16:46 Completed Troponin I Stat Lab 05/14/25 16:46 Completed Vital Signs Vital signs: Vital Signs Temperature 97.9 F 05/14/25 16:20 Pulse Rate 104 H 05/14/25 16:20 Respiratory Rate 19 05/14/25 16:20 Blood Pressure 170/80 H 05/14/25 16:20 Pulse Oximetry (%) 96 05/14/25 16:20 Oxygen Delivery Method Room Air 05/14/25 16:20 Extremity Problem MDM Narrative MDM Narrative:: Scribe Attestation: I, Theresa Grewal, am scribing for and in the presence of Dr. Zelaya. Provider Notation: Although this document has been carefully reviewed, there may still be some phonetic and other typographical errors.? These errors are purely grammatical due to imperfections in the software program and should not be construed in any way to? compromise the substance of the patient's medical care during this visit. I interpreted all labs. Head CT was negative. Lumbosacral spine x-ray showed evidence for degenerative disease. This most likely is causing the pain and numbness down bilateral legs. Patient will be started on Naprosyn to be taken as prescribed. EKG obtained at 4:27 PM shows normal sinus rhythm at a rate of 95 without ischemic change or ectopy. Troponin was not elevated. Patient data External records reviewed:: [facility] previous records (Reviewed records from 09/30/24. Patient was seen for Posterior neck pain.) Clinical information provided by:: patient and family (Daughter) Social determinants that could affect healthcare access:: none Patient has the following chronic illnesses:: Type II DM, Parkinson's Disease How is presenting disease/condition affected by chronic disease/condition?: exacerbated by Evaluation data The following diagnostics were reviewed and interpreted by me:: lab results, radiology exam(s) and EKG tracing(s) Lab and/or radiology exams considered but not ordered:: None Interpretation Summary: RADIOLOGY L-Spine X-Ray: FINDINGS: Adequate alignment lumbar vertebral bodies on the lateral view No lumbar fracture [id number] lumbar disc narrowing L1-L2, L2-L3, L5-S1 No spondylolisthesis Prominent lumbar spondylosis IMPRESSION: [id number] lumbar degenerative disc disease L1-L2, L2-L3, L5-S1 Prominent lumbar spondylosis Head/Brain CT: Findings: No significant ventricular enlargement. Intra-axial or extra-axial hemorrhage density is not seen. No mass effect or midline shift Basal cisterns are not remarkable. Fourth ventricle is midline. Cranial vault intact. Impression: Patient motion degrades scan image quality No hemorrhage mass effect or midline shift is noted Medications / Prescriptions Medications or Prescriptions considered but not ordered:: None Medication administrations:: See above if any Consultations Consultation(s) initiated? (list below): No Diagnosis Extremity Problem Differential Diagnosis: gout, lower extremity edema, deep vein thrombosis of lower extremity and other (Arthiritis, Osteoporosis, Discitis, Sciatica) Most likely diagnosis given after review of the tests above:: none Admission Indicated Admission indicated?: not indicated Explain why admission is indicated or not indicated:: Patient does no meet admission criteria. Admission Request Was there a request for admission?: No Disposition Plan Disposition Plan: Discharge Discharge Attestation Discharge Attestation: The patient and all family members were given an opportunity to ask questions and understood the discharge instructions. Discharge instructions specifically effects, indications for sooner follow up or return to the emergency department, and the expected course of current diagnosis. Patient condition: Stable Discharge Plan Plan Patient Disposition: HOME (Self Care) Prescriptions/Referrals Prescriptions/Med Rec: New naproxen [Naprosyn] 500 mg tablet 500 mg PO BID PRN (Reason: pain) Qty: 30 0RF No Action pravastatin 40 mg tablet 40 mg PO QDAY furosemide 40 mg tablet 40 mg PO QDAY potassium chloride 8 mEq capsule, extended release 8 meq PO QDAY isosorbide dinitrate 30 mg tablet 30 mg PO QID Rx Instructions: allow nitrate-free interval of 12-14 hrs per 24-hr period trihexyphenidyl 2 mg tablet 2 mg PO QPC gabapentin 600 mg tablet 600 mg PO QDAY Rx Instructions: take 2 tabs po Q morning and at noon and 3 tab at bedtime losartan 100 mg tablet 100 mg PO QDAY metformin 1,000 mg tablet 1,000 mg PO QDAY ropinirole 0.5 mg tablet 0.5 mg PO QDAY nortriptyline 10 mg capsule 10 mg PO QDAY hydrocodone-acetaminophen 5-325 mg tablet 1 tab PO BID PRN Myrbetriq 50 mg tablet extended release 24 hr 50 mg PO QDAY Aspirin (Aspir 81) 81 MG TABLET.DR 1 tab PO DAILY Qty: 0 Insulin NPH/Regular 70-30 * (NOVOLIN 70-30 *) 100 UNIT/ML unit Qty: 0 diclofenac sodium 1 % gel 1 g topical .BID prn Qty: 100 0RF Rx Instructions: apply to single elbow, wrist or hand; for hand includes palm/fingers/back of hand cyclobenzaprine 10 mg tablet 10 mg PO TID PRN (Reason: muscle spasm) Qty: 20 0RF naproxen [Naprosyn] 500 mg tablet 500 mg PO BID PRN (Reason: pain) Qty: 30 0RF cyclobenzaprine 10 mg tablet 10 mg PO TID PRN (Reason: muscle spasm) Qty: 30 0RF ibuprofen 600 mg tablet 600 mg PO TID PRN (Reason: pain) Qty: 30 0RF Referrals: Evan Lovett [Primary Care Provider] - In 1 week Problem List 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
== END 2025-05-14 20:02 | disposition home or self-care (01) ==
PROVIDERS: Nurse Practitioner Family; Emergency Provider Emergency Medicine; PCP Family Medicine
DX: M47.816 Spondylosis without myelopathy or radiculopathy, lumbar region (principal); M51.360 Other intervertebral disc degeneration, lumbar region with discogenic back pain only; M51.370 Other intervertebral disc degeneration, lumbosacral region with discogenic back pain only; R51.9 Headache, unspecified; R42 Dizziness and giddiness; I44.4 Left anterior fascicular block
CPT/HCPCS: 36415; 70450; 72100; 80053; 84484; 85025; 85379; 93005; 99283

== ENCOUNTER → 2025-06-21 | Outpatient (CLI) | payer MEDICARE, MEDICAID, SELFPAY ==
[2025-06-21 10:25] LABS: Basophils # (Auto) 0.1 Thou/mm3 (0.0-0.2); Basophils % (Auto) 1 % (0-2.5); Eosinophils # (Auto) 0.2 Thou/mm3 (0.0-0.5); Eosinophils % (Auto) 2 % (0-10); Hematocrit 38.8 % (36.0-46.0); Hemoglobin 12.0 g/dL (12.0-16.0); Immature Granulocytes Auto 0.05 Thou/mm3 (0.00-0.00); Lymphocytes # (Auto) 4.5 Thou/mm3 (1.0-4.8); Lymphocytes % (Auto) 31 % (10-50); Mean Corpuscular HGB Conc 30.9 g/dl (31.0-37.0); Mean Corpuscular Hemoglobin 23.7 pg (25.0-35.0); Mean Corpuscular Volume 77 fL (80-100); Monocytes # (Auto) 0.8 Thou/mm3 (0.0-0.8); Monocytes % (Auto) 5 % (0-12); Neutrophils # (Auto) 9.1 Thou/mm3 (1.8-7.7); Neutrophils % (Auto) 62 % (37-80); Nucleated Red Blood Cell # 0.00 Thou/mm3 (0.00-0.00); Nucleated Red Blood Cell % 0 /100 WBC (0); Platelet Count 431 Thou/mm3 (140-440); RDW Standard Deviation 40.5 fL (36.4-46.3); Red Blood Count 5.06 Miln/mm3 (4.00-5.20); White Blood Count 14.8 Thou/mm3 (3.6-11.0)
[2025-06-21 10:42] LABS: Glucose Estimated Average 246 mg/dL (80-131); Hemoglobin A1C 10.2 % Hgb (4.8-6.0)
[2025-06-21 11:12] LABS: Alanine Aminotransferase 8 U/L (10-49); Albumin, Serum 4.1 gm/dL (3.4-4.8); Albumin/Globulin Ratio 1.4 (1.2-2.2); Alkaline Phosphatase 126 U/L (46-116); Anion Gap 11 (7-16); Aspartate Amino Transferase 10 U/L (0-34); BUN/Creatinine Ratio 20 Ratio (12-20); Bilirubin,Total 0.3 mg/dL (0.3-1.2); Blood Urea Nitrogen 12 mg/dL (9-23); Calcium 9.8 mg/dL (8.3-10.6); Calcium (Corrected) 9.8 mg/dL (8.5-10.1); Carbon Dioxide 27.7 mMol/L (20.0-31.0); Cardiac Risk Estimate 2.8 RATIO (3.7-5.6); Chloride 102 mMol/L (98-107); Cholesterol 102 mg/dL (132-200); Creatinine (Component) 0.6 mg/dL (0.6-1.3); Globulin 3.0 gm/dL (2.3-3.5); Glucose 173 mg/dL (74-106); HDL Cholesterol 36 mg/dL (40-60); LDL Cholesterol,Calculated 34 mg/dL (0-130); Osmolality,Calculated 284 (275-295); Potassium 4.1 mMol/L (3.4-5.1); Sodium 141 mMol/L (136-145); Total Protein 7.1 gm/dL (5.7-8.2); Triglycerides 159 mg/dL (30-150); eGFR > 60 See Note
[2025-06-21 11:35] LABS: Creatinine MALB Rnd Ur 70 mg/dL (30-125); Microalbumin Creat Ratio 41 mg/gCrea (<30); Microalbumin, Random Urine 29 mg/L (0-300)
== END | disposition home or self-care (01) ==
PROVIDERS: PCP Family Medicine; Referring Provider Internal Medicine Nephrology; Visit Provider Internal Medicine Nephrology
DX: I12.9 Hypertensive chronic kidney disease with stage 1 through stage 4 chronic kidney disease, or unspecified chronic kidney disease (principal); E11.22 Type 2 diabetes mellitus with diabetic chronic kidney disease; E78.5 Hyperlipidemia, unspecified; N18.9 Chronic kidney disease, unspecified; D63.1 Anemia in chronic kidney disease
CPT/HCPCS: 36415; 80053; 80061; 82043; 82570; 83036; 85025

== ENCOUNTER → 2025-07-25 | Outpatient (CLI) | payer MEDICARE, MEDICAID, SELFPAY ==
[2025-07-25 11:55] LABS: Basophils # (Auto) 0.1 Thou/mm3 (0.0-0.2); Basophils % (Auto) 1 % (0-2.5); Eosinophils # (Auto) 0.2 Thou/mm3 (0.0-0.5); Eosinophils % (Auto) 1 % (0-10); Hematocrit 40.3 % (36.0-46.0); Hemoglobin 12.5 g/dL (12.0-16.0); Immature Granulocytes Auto 0.04 Thou/mm3 (0.00-0.00); Lymphocytes # (Auto) 4.5 Thou/mm3 (1.0-4.8); Lymphocytes % (Auto) 32 % (10-50); Mean Corpuscular HGB Conc 31.0 g/dl (31.0-37.0); Mean Corpuscular Hemoglobin 23.2 pg (25.0-35.0); Mean Corpuscular Volume 75 fL (80-100); Monocytes # (Auto) 0.7 Thou/mm3 (0.0-0.8); Monocytes % (Auto) 5 % (0-12); Neutrophils # (Auto) 8.8 Thou/mm3 (1.8-7.7); Neutrophils % (Auto) 61 % (37-80); Nucleated Red Blood Cell # 0.00 Thou/mm3 (0.00-0.00); Nucleated Red Blood Cell % 0 /100 WBC (0); Platelet Count 379 Thou/mm3 (140-440); RDW Standard Deviation 41.9 fL (36.4-46.3); Red Blood Count 5.39 Miln/mm3 (4.00-5.20); White Blood Count 14.3 Thou/mm3 (3.6-11.0)
[2025-07-25 12:07] LABS: Alanine Aminotransferase < 7 U/L (10-49); Albumin, Serum 4.5 gm/dL (3.4-4.8); Albumin/Globulin Ratio 1.3 (1.2-2.2); Alkaline Phosphatase 118 U/L (46-116); Anion Gap 10 (7-16); Aspartate Amino Transferase 17 U/L (0-34); BUN/Creatinine Ratio 12 Ratio (12-20); Bilirubin,Total 0.3 mg/dL (0.3-1.2); Blood Urea Nitrogen 7 mg/dL (9-23); Calcium 9.8 mg/dL (8.3-10.6); Calcium (Corrected) 9.8 mg/dL (8.5-10.1); Carbon Dioxide 27.1 mMol/L (20.0-31.0); Chloride 102 mMol/L (98-107); Creatinine (Component) 0.6 mg/dL (0.6-1.3); Globulin 3.6 gm/dL (2.3-3.5); Glucose 119 mg/dL (74-106); Osmolality,Calculated 276 (275-295); Potassium 4.0 mMol/L (3.4-5.1); Sodium 139 mMol/L (136-145); Total Protein 8.1 gm/dL (5.7-8.2); eGFR > 60 See Note
[2025-07-25 12:14] LABS: Glucose Estimated Average 240 mg/dL (80-131); Hemoglobin A1C 10.0 % Hgb (4.8-6.0)
== END | disposition home or self-care (01) ==
LOC: COPL 11:02
PROVIDERS: PCP Family Medicine; Referring Provider Internal Medicine Nephrology; Visit Provider Internal Medicine Nephrology
DX: I12.9 Hypertensive chronic kidney disease with stage 1 through stage 4 chronic kidney disease, or unspecified chronic kidney disease (principal); E11.22 Type 2 diabetes mellitus with diabetic chronic kidney disease; N18.9 Chronic kidney disease, unspecified; D63.1 Anemia in chronic kidney disease
CPT/HCPCS: 36415; 80053; 83036; 85025